=== PATIENT | female | born 1975 | race African-American/Black ===

== ENCOUNTER 2024-03-04 12:13 | Emergency (ER) | payer SELFPAY ==
[2024-03-04 12:26] VITALS: BMI 28.7
[2024-03-04] MEDS ORDERED: FAMOTIDINE 20 MG/50 ML IVPB 20 MG/50 ML MG IVPB ONE (13:02)
[2024-03-04] MEDS: SODIUM CHLORIDE 0.9% 500 ML INFUS.BAG IV ONE (13:15)
[2024-03-04] MEDS: FAMOTIDINE 20 MG/50 ML IVPB 20 MG/50 ML MG IVPB ONE (13:15)
[2024-03-04 15:19] VITALS: BP 140/96; PULSE 68; RESP 16; TEMP 98.8
== END 2024-03-04 15:15 | disposition home or self-care (01) ==
LOC: JER 12:13
PROC: 3E033GC Introduction of Other Therapeutic Substance into Peripheral Vein, Percutaneous Approach (ICD-10-PCS; principal; 2024-03-04)
PROC: 3E033GC Introduction of Other Therapeutic Substance into Peripheral Vein, Percutaneous Approach (ICD-10-PCS; 2024-03-04)
DX: L50.0 Allergic urticaria (principal)
CPT/HCPCS: 99284-25